=== PATIENT | male | born 1970 | race Asian ===

== ENCOUNTER 2019-07-05 13:59 | Emergency (ER) | payer MEDICAID ==
[~2019-07-05] VITALS: Ht 174 cm; Wt 88.0 kg
[2019-07-05] MEDS ORDERED: LANTUS SOL100 UNIT/1 SUBQ (14:08)
[2019-07-05] MEDS ORDERED: LISINOPRIL2.5 MG ORAL (14:08)
[2019-07-05] MEDS ORDERED: DEPAKOTE250 MG PO (14:08)
--- NOTE | 2019-07-05 14:30 | NUR ---
ED Nurse Note:pt. was BIBA from home with c/o hearing voices and possibly hurting himself, no active SI plan present, pt. is A/ox4 ambulatory with steady gait, given fluids, personal belongings in cab #3, skin is intact
--- NOTE | 2019-07-05 14:51 | NUR ---
ED Nurse Note:blood and urine sen tto labs
--- NOTE | 2019-07-05 15:00 | NUR ---
ED Nurse Note:augustina precoutions per Er PA orders, sitter is at the bedside
[2019-07-05 15:33] LABS: BASOPHILS % (AUTO) 0.9 % (0.0-2.0); EOSINOPHILS % (AUTO) 4.5 % (0.0-3.0); HEMATOCRIT 47.7 % (42.0-52.0); HEMOGLOBIN 16.4 G/DL (14.2-18.0); LYMPHOCYTES % (AUTO) 23.2 % (20.0-45.0); MEAN CORPUSCULAR VOLUME 89 FL (80-99); MONOCYTES % (AUTO) 5.3 % (1.0-10.0); PLATELET COUNT 289 K/UL (150-450); RED BLOOD COUNT 5.36 M/UL (4.70-6.10); RED CELL DISTRIBUTION WIDTH 10.7 % (11.6-14.8); WHITE BLOOD COUNT 11.5 K/UL (4.8-10.8)
[2019-07-05 15:37] LABS: APPEARANCE,URINE CLEAR; BILIRUBIN, URINE NEGATIVE (NEGATIVE); COLOR,URINE PALE YELLOW; GLUCOSE, URINE (UA) 4+ (NEGATIVE); KETONES,URINE NEGATIVE (NEGATIVE); LEUKOCYTE ESTERASE ,URINE NEGATIVE (NEGATIVE); NITRITE,URINE NEGATIVE (NEGATIVE); PH,URINE 6 (4.5-8.0); PROTEIN,URINE NEGATIVE (NEGATIVE); UROBILINOGEN,URINE NORMAL MG/DL (0.0-1.0)
[2019-07-05 15:48] LABS: ANION GAP 9 mmol/L (5-15); BLOOD UREA NITROGEN 16 mg/dL (7-18); CALCIUM 9.4 MG/DL (8.5-10.1); CARBON DIOXIDE 29 MMOL/L (21-32); CHLORIDE 101 MMOL/L (98-107); CREATININE 1.1 MG/DL (0.55-1.30); POTASSIUM 4.4 MMOL/L (3.5-5.1); SODIUM 139 MMOL/L (136-145)
--- NOTE | 2019-07-05 15:54 | Diagnostic Imaging Report ---
Indication: Dyspnea Comparison: None A single view chest radiograph was obtained. Findings: No definite infiltrate or pulmonary vascular congestion identified. Minimal right basal atelectasis probably present. The heart is enlarged. The aorta is mildly enlarged consistent with atherosclerotic vascular disease. The bones are osteopenic. Impression: No acute disease
[2019-07-05 16:03] LABS: ALANINE AMINOTRANSFERASE 32 U/L (12-78); ALBUMIN 3.2 G/DL (3.4-5.0); ALBUMIN/GLOBULIN RATIO 0.7 (1.0-2.7); ALKALINE PHOSPHATASE 111 U/L (46-116); ASPARTATE AMINO TRANSFERASE 23 U/L (15-37); BILIRUBIN,TOTAL 0.2 MG/DL (0.2-1.0); CREATINE KINASE 120 U/L (26-308)
[2019-07-05 16:28] VITALS: BP 136/80
--- NOTE | 2019-07-05 17:12 | Emergency Room Report ---
History of Present Illness General Chief Complaint: Behavioral Complaint Source: EMS Present Illness HPI 49-year-old male with history of diabetes, hypertension, bipolar disorder currently controlled with insulin, lisinopril, and BuSpar as well as Depakote here complaining of several days of hearing voices that are telling him to take his own life. Patient actively elicits suicidal ideation reporting that he has tried to kill himself in the past wanting to take all of his bottles of medicine at once. Patient has not done that yet today. Has not taken his medication today. Appears stable. Complains of chest pain upon arrival and has been worked up for chest pain and no signs of heart attack or other cardiac or pulmonary sources noted. Patient reports that he just got discharged from a different hospital 2 weeks ago first same purpose. 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 Denies any drug use, tobacco smoke, alcohol intake. Has not taken any medication for symptom relief. Complains of difficulty sleeping, however denies change of appetite. Denies any homicidal ideation. Reports that the voices that he is hearing specifically tell him to take his own life. Patient has never been treated for psychotic features in the past. Allergies: Coded Allergies: No Known Allergies (Unverified , 07/05/19) Patient History Past Medical History: see triage record Past Surgical History: unable to obtain Family History: none Immunizations: UTD Reviewed Nursing Documentation: PMH: Agreed; PSxH: Agreed Nursing Documentation-PM Past Medical History: No History, Except For Hx Hypertension: Yes Hx Diabetes: Yes History Of Psychiatric Problem: Yes Review of Systems All Other Systems: negative except mentioned in HPI Physical Exam Vital Signs Date Time Temp Pulse Resp B/P (MAP) Pulse Ox O2 Delivery O2 Flow Rate FiO2 07/05/19 14:05 97.9 82 16 136/80 (98) 99 Room Air Sp02 EP Interpretation: reviewed, normal General Appearance: alert/responsive, no apparent distress, GCS 15, non-toxic Head: atraumatic Eyes: PERRL, lids + conjunctiva normal ENT: hearing intact, no angioedema Neck: supple/symm/no masses, no meningismus Respiratory: effort normal, no wheezing, no retractions, chest symmetrical Cardiovascular: regular rate, rhythm, no edema Gastrointestinal: non-tender, no mass, non-distended, no rebound/guarding, normal bowel sounds Musculoskeletal: gait & station normal, strength & tone normal, normal ROM, non -tender Neurologic: oriented x3, sensory intact, normal speech Psychiatric: memory normal, affect normal Suicide Risk Assessment: Suicidal Ideation: Yes Had intent to initiate attempt: Yes Pt's plan for suicide attempt: Yes Has means to complete attempt: Yes Skin: normal inspection, no rash Lymphatic: normal inspection, normal cervical nodes Medical Decision Making PA Attestation All my diagnosis and treatment plans were reviewed ad discussed with my supervising physician Dr. Kaur Diagnostic Impression: Primary Impression: Suicidal ideation ER Course 49-year-old male with history of diabetes, hypertension, bipolar disorder currently controlled with insulin, lisinopril, and BuSpar as well as Depakote here complaining of several days of hearing voices that are telling him to take his own life. Patient actively elicits suicidal ideation reporting that he has tried to kill himself in the past wanting to take all of his bottles of medicine at once. Patient has not done that yet today. Has not taken his medication today. Appears stable. Complains of chest pain upon arrival and has been worked up for chest pain and no signs of heart attack or other cardiac or pulmonary sources noted. Patient reports that he just got discharged from a different hospital 2 weeks ago first same purpose. 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 Denies any drug use, tobacco smoke, alcohol intake. Has not taken any medication for symptom relief. Complains of difficulty sleeping, however denies change of appetite. Denies any homicidal ideation. Reports that the voices that he is hearing specifically tell him to take his own life. Patient has never been treated for psychotic features in the past Ddx considered but are not limited to: generalized anxiety disorder, panic attack, depression with psychotic feature, bipolar disorder, drug overdose Vital signs: are WNL, pt. is afebrile H&PE are most consistent with: Suicidal ideation ORDERS: Chest pain set, psychiatric set ED INTERVENTIONS: None required at this time. DISCHARGE: At this time pt. is stable for d/c to psychiatric facility will provide printed patient care instructions, and any necessary prescriptions. Care plan and follow up instructions have been discussed with the patient prior to discharge. Patient okay to be discharged to psychiatric facility, patient is medically cleared EKG Diagnostic Results Rate: normal Rhythm: NSR ST Segments: no acute changes Other Impression No acute ST changes Chest X-Ray Diagnostic Results Chest X-Ray Diagnostic Results : Chest X-Ray Ordered: Yes # of Views/Limited/Complete: 1 View Indication: Chest Pain EP Interpretation: Yes Interpretation: no consolidation, no effusion, no pneumothorax, no acute cardiopulmonary disease Impression: No acute disease Electronically Signed by: Landon Coley PA-C Last Vital Signs Date Time Temp Pulse Resp B/P (MAP) Pulse Ox O2 Delivery O2 Flow Rate FiO2 07/05/19 16:28 97.9 82 16 136/80 99 Room Air Disposition: XFER TO PSYCH HOSP/UNIT Condition: Stable Referrals: NON PHYSICIAN (PCP) Landon Harry Jul 05, 2019 17:12
--- NOTE | 2019-07-05 18:42 | NUR ---
ED Nurse Note:PT. ATE DINNER, SLEPT IN ROOM, SITTER IS AT BEDSIDE
--- NOTE | 2019-07-05 19:09 | NUR ---
HAND-OFF: Report given to patt.
--- NOTE | 2019-07-05 19:15 | NUR ---
ED Nurse Note: pt care endorsed by JEFFERY Mckoy. pt does not appear to be in any distress, he is ambulatory in his room and has a sitter at bedside. pt has SI precautions in place
[2019-07-05] MEDS ORDERED: DiphenhydrAMINE 50mg/ml Inj IM ONE ×2 (19:30→20:30)
--- NOTE | 2019-07-05 20:00 | NUR ---
ED Nurse Note: pt is c/o 06/17 back px, ER PA is aware and will order px meds. pt asking for water as well
[2019-07-05 20:12] VITALS: BP 147/100
[2019-07-05 21:00] VITALS: BP 148/98
--- NOTE | 2019-07-05 21:49 | NUR ---
ED Nurse Note: pt is currently sleeping. He asked for a sandwich before he fell asleep but has not eaten it yet. sitter at bedside, pt is stable and does not appear to be in any distress at this moment
--- NOTE | 2019-07-05 22:11 | NUR ---
ED Nurse Note: VERIFIED W/ ER PROVIDER AND ORDERED BLOOD ALCOHOL LEVEL FOR MEDICAL CLEARANCE
[2019-07-05 22:51] VITALS: BP 142/94
--- NOTE | 2019-07-06 01:26 | NUR ---
ED Nurse Note: pt is in bed with sitter outside of the room. pt urinated 500 mL of clear yellow urine. he is in no acute distress at this time and appears to be stable.
--- NOTE | 2019-07-06 03:16 | NUR ---
ED Nurse Note: sitter going on break, I will remain at bedside to monitor pt. pt is currently sleeping. appears to be comfortable and stable, in no acute distress at this time
[2019-07-06 03:30] VITALS: BP 138/89
--- NOTE | 2019-07-06 04:52 | NUR ---
ED Nurse Note: pt has stable vital signs. he reports not wanting to hurt himself anymore, that "there are no more voices" and that he "feels better" and is "ready to go home." ERMD aware.
[2019-07-06 04:54] VITALS: BP 138/91
--- NOTE | 2019-07-06 05:00 | NUR ---
ER DISCHARGE NOTE: Patient is cleared to be discharged per ERMD, pt is aox4, on room air, with stable vital signs. pt was given dc instructions, pt was able to verbalize understanding, pt id band without complications. he states that his son Tom will come to pick him up. pt is able to ambulate with steady gait. pt took all belongings.
[2019-07-06 05:08] VITALS: BP 138/91
--- NOTE | 2019-07-06 05:52 | Emergency Room Report ---
Physical Exam Vital Signs Date Time Temp Pulse Resp B/P (MAP) Pulse Ox O2 Delivery O2 Flow Rate FiO2 07/05/19 14:05 97.9 82 16 136/80 (98) 99 Room Air Medical Decision Making Diagnostic Impression: Primary Impression: Behavioral change ER Course Hospital Course 49 yo M presents to ED for hearing voices. history of psych patient initially seen and evaluated by CUAUHTEMOC Harry. Please see her note for full history and physical Clinical course Labs-electrolytes normal, aspirin/Tylenol levels normal, EtOH level normal, U. tox negative On reassessment patient allowed to rest. States that he is no longer hearing voices. Denies SI or HI. Does not have a plan. Is not on 5150 hold. Based on my assessment patient does not meet criteria for emergent psychiatric evaluation. Can be discharged to home with close outpatient follow-up. I will provide referrals i. I feel this is a highly complex case requiring extensive working including EKG/Rhythm strip, Xray/CT/US, Blood/urine lab work, repeat exams while in ED, and administration of strong opiates/narcotics for pain control, admission to hospital or close patient follow up. diagnosis - behavioral change stable and discharged to home. followup with PMD. return to ED if symptoms recur/worsen. Labs Test 07/05/19 14:28 07/05/19 14:42 07/05/19 14:45 Serum Alcohol < 3 mg/dL White Blood Count 11.5 K/UL (4.8-10.8) Red Blood Count 5.36 M/UL (4.70-6.10) Hemoglobin 16.4 G/DL (14.2-18.0) Hematocrit 47.7 % (42.0-52.0) Mean Corpuscular Volume 89 FL (80-99) Mean Corpuscular Hemoglobin 30.5 PG (27.0-31.0) Mean Corpuscular Hemoglobin Concent 34.3 G/DL (32.0-36.0) Red Cell Distribution Width 10.7 % (11.6-14.8) Platelet Count 289 K/UL (150-450) Mean Platelet Volume 5.5 FL (6.5-10.1) Neutrophils (%) (Auto) 66.0 % (45.0-75.0) Lymphocytes (%) (Auto) 23.2 % (20.0-45.0) Monocytes (%) (Auto) 5.3 % (1.0-10.0) Eosinophils (%) (Auto) 4.5 % (0.0-3.0) Basophils (%) (Auto) 0.9 % (0.0-2.0) Prothrombin Time 10.3 SEC (9.30-11.50) Prothromb Time International Ratio 1.0 (0.9-1.1) Activated Partial Thromboplast Time 28 SEC (23-33) Sodium Level 139 MMOL/L (136-145) Potassium Level 4.4 MMOL/L (3.5-5.1) Chloride Level 101 MMOL/L (98-107) Carbon Dioxide Level 29 MMOL/L (21-32) Anion Gap 9 mmol/L (5-15) Blood Urea Nitrogen 16 mg/dL (7-18) Creatinine 1.1 MG/DL (0.55-1.30) Estimat Glomerular Filtration Rate > 60 mL/min (>60) Glucose Level 240 MG/DL (74-106) Calcium Level 9.4 MG/DL (8.5-10.1) Total Bilirubin 0.2 MG/DL (0.2-1.0) Aspartate Amino Transf (AST/SGOT) 23 U/L (15-37) Alanine Aminotransferase (ALT/SGPT) 32 U/L (12-78) Alkaline Phosphatase 111 U/L (46-116) Total Creatine Kinase 120 U/L (26-308) Creatine Kinase MB 1.0 NG/ML (0.0-3.6) Creatine Kinase MB Relative Index 0.8 Troponin I 0.000 ng/mL (0.000-0.056) Total Protein 7.8 G/DL (6.4-8.2) Albumin 3.2 G/DL (3.4-5.0) Globulin 4.6 g/dL Albumin/Globulin Ratio 0.7 (1.0-2.7) Urine Color Pale yellow Urine Appearance Clear Urine pH 6 (4.5-8.0) Urine Specific [place] 1.010 (1.005-1.035) Urine Protein Negative (NEGATIVE) Urine Glucose (UA) 4+ (NEGATIVE) Urine Ketones Negative (NEGATIVE) Urine Blood Negative (NEGATIVE) Urine Nitrite Negative (NEGATIVE) Urine Bilirubin Negative (NEGATIVE) Urine Urobilinogen Normal MG/DL (0.0-1.0) Urine Leukocyte Esterase Negative (NEGATIVE) Urine Opiates Screen Negative (NEGATIVE) Urine Barbiturates Screen Negative (NEGATIVE) Phencyclidine (PCP) Screen Negative (NEGATIVE) Urine Amphetamines Screen Negative (NEGATIVE) Urine Benzodiazepines Screen Negative (NEGATIVE) Urine Cocaine Screen Negative (NEGATIVE) Urine Marijuana (THC) Screen Negative (NEGATIVE) Last Vital Signs Date Time Temp Pulse Resp B/P (MAP) Pulse Ox O2 Delivery O2 Flow Rate FiO2 07/06/19 05:08 98.5 82 16 138/91 94 Room Air Status: improved Disposition: HOME, SELF-CARE Condition: Stable [facility] Psych ER - Peds ER - Patient Instructions: Schizophrenia Dain Yarbrough MD Jul 06, 2019 05:52
--- NOTE | 2019-07-06 16:47 | Cardiology Report ---
APPROVED REPORT EKG Measurement Heart [id number] Normal sinus rhythm Normal ECG
== END 2019-07-06 05:08 | disposition home or self-care (01) ==
LOC: EDBD 13:59 → EMR 14:25
DX: F91.9 Conduct disorder, unspecified (principal); R45.851 Suicidal ideations; I10 Essential (primary) hypertension; E11.9 Type 2 diabetes mellitus without complications; F31.9 Bipolar disorder, unspecified; Z79.4 Long term (current) use of insulin; R07.9 Chest pain, unspecified
CPT/HCPCS: 36415; 71045; 80053; 80307; 81003; 82550; 82553; 84484; 85025; 85610; 85730; 93005; 96360; 96372; G0480; J1200; Z7502; 99284; J7030